=== PATIENT | female | born 1985 ===

== ENCOUNTER 2017-04-10 13:02 | Emergency (ER) | payer SELFPAY ==
[2017-04-10 13:47] LABS: SQUAMOUS EPITHIAL 15 /hpf (0-5); URINE BACTERIA RARE (<OCC); URINE BILIRUBIN NEGATIVE (NEGATIVE); URINE BLOOD NEGATIVE (NEGATIVE); URINE CLARITY Clear (Clear); URINE COLOR Yellow (YELLOW); URINE GLUCOSE (UA) NORMAL (Normal); URINE LEUKOCYTE ESTERASE 1+ Leu/uL (Negative); URINE NITRATE NEGATIVE (NEGATIVE); URINE PROTEIN NEGATIVE (NEGATIVE); URINE UROBILINOGEN NORMAL mg/dL (0.2-1.0)
--- NOTE | 2017-04-10 18:30 | OBHP ---
Datetime: 04/10/2017 15:06 IP Chief Complaint Other: abdominal pain IP Adm Impression Other: ain due to fibroids; no activ elabor IP Admit Plan: Discharge home Admit Comment, IP Provider: CC: Lower abdominal pain R>L HPI: Patient is a 31 year old female presenting at 36 weeks gestation with BIBI by first trimester US, who presents with complaint of lower abdominal pain. Pain is made worse wit h movement and is sharp in nature. Pain is location primarily in the mid-lower abdomen and is s lightly worse on the right side than the left. Patient states that the pain began yesterday (Sunday) and has been getting worse, currently rated at 6/10. Patient denies vaginal bleeding, dysuria, hematu augustin, discharge and membrane rupture. Patient states that she is feeling movement, while being i nterviewed. Patient denies chest pain, palpitations and shortness of breath. 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 Stable, Afebrile 2. CEFM 3. UA ---> +1 LE and urine WBC: 10 4. Discharge with prescription of Macrobid 100mg PO BID for 3 days 5. Labor precautions given 6. Instructed to continue care in [place] as planned by patient 7. Plans discussed with attending Seymour Harris DO, PGY-1 ob attending -sherif castellanos.agree with resident exam, assessment and plan Extremities - PN: Normal Abdomen - PN: Abnormal Back - PN: Not Done Breast - PN: Not Done Lungs - PN: Normal Heart - PN: Normal Thyroid - PN: Normal Neurologic - PN: Normal HEENT - PN: Normal General - PN: Normal FHR - Baseline A Provider: 150 Contraction Comments Provider: occ Comments, ACOG Physical Exam: Gen: NAD Cardio: RRR, normal S1, S2 Pulm: CTA bilaterally Abdomen: Soft, BSX4, Gravid, fibroid palpable on right superior lateral to the umbilicus Ext: No edema, no clubbing and no cyanois SVE: Closed and posterior EFM: -TOCO: NONE -FHR: 150, +Accelerations Gestation - Est Wks by US: 36.0 Pool Provider: Negative NICHD Variability Prov Fetus A: Absent - Undetectable NICHD Accel Fetus A IP Provider: 15X15 FHR Category Provider Fetus A: Category I Dilatation, Provider: 0 Effacement, Provider: 0 Genitourinary Exam: Not Done
[2017-04-10 18:34] VITALS: BP 118/78; PULSE 103
== END 2017-04-10 14:33 | disposition home or self-care (01) ==
LOC: C.EROB 13:02
DX: O26.893 Other specified pregnancy related conditions, third trimester (principal); Z3A.36 36 weeks gestation of pregnancy; R10.30 Lower abdominal pain, unspecified

== ENCOUNTER 2017-05-04 06:45 | Inpatient (IN) | payer SELFPAY ==
[2017-05-04] MEDS ORDERED: Sodium Citrate/Citric Acid 15 ml Sol PO ONE (07:18)
[2017-05-04] MEDS ORDERED: cefOXitin 2 GM in Sodium Chloride 0.9% 100 ML IVPB ONE (07:18)
[2017-05-04 07:27] VITALS: BMI 29.0
[2017-05-04] MEDS ORDERED: Lactated Ringer's 1,000 ML IV SCH ×2 (07:30)
[2017-05-04 09:03] LABS: BASO % 0.3 % (0.0-2.0); EOS # 0.2 K/uL (0.0-0.7); EOS % 2.7 % (0.0-4.0); HEMOGLOBIN 11.7 g/dL (11.0-16.0); LYMPH # 1.5 K/uL (1.0-4.3); LYMPH % 17.5 % (20.0-40.0); MEAN CORPUSCULAR HEMOGLOBIN 29.1 pg (27.0-31.0); MEAN CORPUSCULAR HGB CONC 33.8 g/dL (33.0-37.0); MEAN PLATELET VOLUME 9.7 fL (7.2-11.7); MONO # 0.6 K/uL (0.0-0.8); MONO % 6.9 % (0.0-10.0); NEUT # 6.4 K/uL (1.8-7.0); NEUT % 72.6 % (50.0-75.0); NRBC % 0.1 % (0.0-2.0); RBC 4.03 Mil/uL (3.80-5.20); RED CELL DISTRIBUTION WIDTH 14.7 % (11.5-14.5); WHITE BLOOD COUNT 8.8 K/uL (4.8-10.8)
[2017-05-04 09:08] LABS: ALBUMIN 3.5 g/dL (3.5-5.0); ALT/SGPT 31 U/L (9-52); AST/SGOT 27 U/L (14-36); BLOOD UREA NITROGEN 12 mg/dL (7-17); CALCIUM 9.4 mg/dl (8.6-10.4); GFR AFRICAN-AMERICAN > 60; GFR NON-AFRICAN AMERICAN > 60
[2017-05-04 09:12] LABS: SQUAMOUS EPITHIAL 13 /hpf (0-5); URINE BACTERIA FEW (<OCC); URINE BILIRUBIN NEGATIVE (NEGATIVE); URINE BLOOD NEGATIVE (NEGATIVE); URINE CALCIUM OXALATE CRYSTALS FEW /hpf (<OCC); URINE CLARITY Hazy (Clear); URINE COLOR Yellow (YELLOW); URINE GLUCOSE (UA) NORMAL (Normal); URINE LEUKOCYTE ESTERASE TRACE Leu/uL (Negative); URINE NITRATE NEGATIVE (NEGATIVE); URINE PROTEIN 1+ mg/dL (NEGATIVE); URINE UROBILINOGEN NORMAL mg/dL (0.2-1.0)
--- NOTE | 2017-05-04 09:27 | US ---
Indication: ??fibroids. 39w 6d poor care Comparison: None available Technique: Real-time ultrasound was performed through the pelvis. Findings: There is a single living fetus in cephalic presentation. Amniotic fluid volume measures approximately 12.3 cm, within normal limits. Right lateral placenta. The placenta is not previa. Sub serosal probable uterine fibroid within the mid right uterus measures approximately 8.2 x 7.6 x 7.3 cm. There are no adnexal masses or cysts evident. The cervix is not seen. Measurements and calculations: Fetus has a composite sonographic age of 39 weeks 1 day. This calculation is based on the biparietal diameter, head circumference, abdominal circumference, and femur length. Estimated heart rate 142.5 beats per min. Estimated weight 3687 g. Four-chamber heart was not adequately visualized. The study was performed for emergent evaluation, and the whole anatomic survey of the fetus was not performed. Limited visualized anatomy including spine, stomach, kidneys, cord insertion, and urinary bladder appear grossly unremarkable. Biophysical profile: movements 2/2 breathing 2/2 tone 2/2 Amniotic fluid 2/2 Total score impression: 8/8 Impression: Limited study. Single living fetus with a composite sonographic age of 39 weeks 1 day. Estimated heart rate 142.5 beats per min. Biophysical profile of 8 out of 8. 8.2 cm sub serosal mid right uterine fibroid.
[2017-05-04 14:37] VITALS: BP 124/90; PULSE 89; TEMP 97; O2SAT 99
--- NOTE | 2017-05-04 22:21 | OBDCSUM ---
Datetime: 05/04/2017 10:19 Discharge Instructions, Provider: Specific instructions as noted Follow up in weeks, Provider: Sunday05/07/17 Discharge Diagnosis Prov Other: Term - undelivered Leiomyomatous uteri Anemia GBS positive
== END 2017-05-04 10:35 | disposition home or self-care (01) | DRG 781 ==
LOC: C.4D 06:45
PROVIDERS: ADMIT Obstetrics & Gynecology; ATTEND Obstetrics & Gynecology
DX: O99.013 Anemia complicating pregnancy, third trimester (principal); O34.13 Maternal care for benign tumor of corpus uteri, third trimester; D25.2 Subserosal leiomyoma of uterus; O99.820 Streptococcus B carrier state complicating pregnancy; Z3A.39 39 weeks gestation of pregnancy

== ENCOUNTER 2017-05-07 14:17 | Inpatient (IN) | payer MEDICAID ==
[2017-05-07] MEDS ORDERED: Lactated Ringer's 1,000 ML IV SCH (14:30)
[2017-05-07] MEDS ORDERED: Penicillin G 5 Million Unit Vial IVPB ONE ×2 (14:30→21:38)
[2017-05-07] MEDS ORDERED: PENICILLIN POTASSIUM MU IVPB ONE (15:00)
[2017-05-07] MEDS ORDERED: SODIUM CHLORIDE IVPB ONE (15:00)
[2017-05-07] MEDS ORDERED: Fentanyl/Bupivacaine HCl 250 ML EPI ONE (17:40)
--- NOTE | 2017-05-07 17:49 | OBHP ---
Datetime: 05/07/2017 14:12 IP Adm Impression: Term, intrauterine IP Admit Plan: Admit to unit Admit Comment, IP Provider: 31 year old at 40w2d BIBI 05/05/17 by LMP (07/29/2016) presents to L+D for scheduled induction of labor. Patient is doing well, offers no complaints. Endorses +FM, denies C TX, VB, LOF. Patient was extensively counseled on trial of labor vs C/S for leiomyoma upon arrival an d patient is still ammenable to trial of labor. 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 PE: See above A/P: 31 year old at 40w2 presents for induction of labor, hx of leiomyomatous uterus -Admit to unit for induction of labor -CEFM and TOCO -Category I tracing -Labs: T+S -GBS positive: Pen G 5MU x 1, Pen G 2.5MU q4H until delivery -Anesthesia consulted -Cytotec 50mcg PO for cervical ripening agent -Anticipate vaginal delivery -Plan discussed with Dr. Piyush Chaudhry DO PGY-1 Attending Note: Patient seen and examined by me withthe Resident. Cervical exam performed by me. I agree with the above as documented. In addition, the course of trial of labor was discussed to inc lude the placement of cervical ripening balloon with pitocin after the first dose of cytotec. Patien t to receive epidural prior to this additional step. Patient expressed an understanding. All of her and her huband's concerns and questions were addressed and answered; patient agrees with the plans a s above. Category 1 tracing. Patient is clinically stable. Plan: 1) as above FHR - Baseline A Provider: 140 Membranes, Provider: Intact Contraction Comments Provider: occasional Comments, ACOG Physical Exam: VSS Gen: AAOx3 Abd: Soft, gravid Ext: No clubbing, cyanosis, edema SVE: /-3 TOCO: 140, moderate variability, +accels CTX: occasional US 05/04/16: Right fundolateral subserosal myoma 8.2 x 7.6 x 7.3 cm; fetus is cephalic, EFW 3687 gra ms; LINDA 12.3cm; BPS 8/8. IP Hx Assessment: The History has been Reviewed and is Current EGA AdmitDate IP: 40.2 Vital Signs Provider: Reviewed; Within Normal Limits IP Chief Complaint: Scheduled induction of labor NICHD Variability Prov Fetus A: Moderate 6-25bpm NICHD Accel Fetus A IP Provider: 15X15 FHR Category Provider Fetus A: Category I NICHD Decel Fetus A IP Provider: None Dilatation, Provider: 2 Effacement, Provider: 40 Station, Provider: -3 Datetime: 05/04/2017 19:28 Pelvic Type - PN: Adequate Extremities - PN: Normal Abdomen - PN: Abnormal Back - PN: Normal Breast - PN: Not Done Lungs - PN: Normal Heart - PN: Normal Thyroid - PN: Not Done Neurologic - PN: Normal HEENT - PN: Normal General - PN: Normal Presentation-Admit: Vertex Gestation - Est Wks by US: 39w 6d Genitourinary Exam: Normal DTRs - PN: Not Done
[2017-05-07] MEDS ORDERED: Oxytocin 30 UNIT 30 UNITS/500 ML BAG IV SCH (18:45)
[2017-05-07] MEDS ORDERED: Oxytocin 30 UNIT 30 UNITS/500 ML BAG IV ONE (19:24)
--- NOTE | 2017-05-08 00:52 | OBPN ---
Datetime: 05/08/2017 00:46 IP Progress Impression: Normal progression of labor IP Procedures: Sterile Vag Exam IP Progress Plan: Continue present management; Augmentation; Anticipate Vaginal Delivery Membranes, Provider: Intact Contraction Comments Provider: 1-2 FHR - Baseline A Provider: 145 Gestation - Est Wks by US: 40w 3d Presentation-Admit: Vertex IP Progress Note Comment: Patient resting comfortable Cervical exam as above. Intracervical balloons removed. Pitocin = 12 mUnits Assessment:31 y.o. P0, 40w 3d, leiomyomatous uteri - S/P cytotec p.o. x 1 and intracervical balloo n with pitocin for augmentaiton. Patient with appropriate cervical response - in active labor. GBS (+ ) on penicillin. Category 1 tracing. Clinically stable. Plan: 1) Continue present management 2) Anticipate vaginal delivery Vital Signs Provider: Reviewed; Within Normal Limits FHR Category Provider Fetus A: Category I NICHD Variability Prov Fetus A: Moderate 6-25bpm Dilatation, Provider: 7 Effacement, Provider: 70 Station, Provider: -2 NICHD Decel Fetus A IP Provider: Early Datetime: 05/07/2017 14:12 NICHD Accel Fetus A IP Provider: [id number] Datetime: 04/10/2017 15:06 Pool Provider: Negative
[2017-05-08] MEDS ORDERED: Bupivacaine HCl 0.25% PF (10 ml) Inj ONE ×2 (02:48→05:50)
[2017-05-08] MEDS ORDERED: Lidocaine 2% MPF (5 ml) Inj ONE ×2 (02:49→06:14)
--- NOTE | 2017-05-08 05:55 | OBPN ---
Datetime: 05/08/2017 05:45 IP Progress Impression: Normal progression of labor IP Procedures: Sterile Vag Exam IP Progress Plan: Continue present management; Anesthesia consult; Anticipate Vaginal Delivery Membranes, Provider: Ruptured Contraction Comments Provider: 2 FHR - Baseline A Provider: 130 Gestation - Est Wks by US: 40w 3d Presentation-Admit: Vertex IP Progress Note Comment: Patient with SROM 0330 ohurs. FHR noted for late decels btwn 0330 hours an d 0400 hours - resolved. Pitocin had been discontinued at 0330 hours. Cervical exam as above. - anterior lip; non reducible. Patient c/o pain in low back and hip joint s with each contraction Assessment: 31 y.o. P0, 40w 3d, leiolyomatous uteri, near end of Stage 1 of labor. category 1 trac ing. Clinically stable. Plan 1) Epidural top off 2) Anticipate vaginal delivery Vital Signs Provider: Reviewed; Within Normal Limits NICHD Accel Fetus A IP Provider: 15X15 FHR Category Provider Fetus A: Category I NICHD Variability Prov Fetus A: Moderate 6-25bpm Dilatation, Provider: 10 Effacement, Provider: 100 Station, Provider: 0 NICHD Decel Fetus A IP Provider: Early
[2017-05-08] MEDS ORDERED: Lidocaine 2% Inj (20ml) ONE (07:35)
[2017-05-08] MEDS ORDERED: Benzocaine/Menthol 20%-0.5% Topical Spray (60 ml) TOP PRN (09:41)
--- NOTE | 2017-05-08 10:22 | OBDS ---
DELIVERY PERSONNEL Delivery Doctor: Chelsea Pickett MD [place]ax Room Supervisor: Bk Ledezma RN Anesthesiologist: Chelsea Zamora MD MATERNAL INFORMATION Delivery Anesthesia: Local; Epidural Estimated Blood Loss (ml): 300 Placenta Cultured: No Maternal Complications: None RN Comments: h/o uterine fibroids Provider Comments: Uncomplicated vaginal delivery of live female from COREY position, over righ t median episiotomy. placed on patient's abdomen; umbilical cord doubly clamped and cut. Infan t handed to peds in attendance. Weight 7lb 11oz, 's 9/9. Spontaneous delivery of placenta - grossly intact; 3 vessel cord Uterine exploration performed; along with inspection of cervix, vagina and perineum - no extension s. Repair as above. Hemostasis assured. Patient tolerated procedure well. Infant, mother and father b onding mother and in stable condition. LABOR SUMMARY EDC: 05/05/2017 00:00 No. Babies in Womb: 1 Attempted: No Labor Anesthesia: Epidural LABOR INFORMATION Reason for Induction: Postterm Onset of Labor: 05/07/2017 15:00 Complete Dilatation: 05/08/2017 07:35 Cervical Ripening Agents: Bergman Balloon; Cytotec @ Oxytocin: Augmentation Group B Beta Strep: Positive Antibiotics # of Doses: 3 Antibiotics Time of Last Dose: 5:45am Steroids Given: None Reason Steroids Not Administered: Not Applicable MEMBRANES Membranes Rupture Method: Spontaneous Rupture of Membranes: 05/08/2017 03:30 Length of Rupture (hrs): 5.98 Amniotic Fluid Color: Clear Amniotic Fluid Amount: Moderate Amniotic Fluid Odor: Normal STAGES OF LABOR Stage 1 hrs: 16 Stage 1 min: 35 Stage 2 hrs: 1 Stage 2 min: 54 Stage 3 hrs: 0 Stage 3 min: 6 Total Time in Labor hrs: 18 Total Time in Labor min: 35 VAGINAL DELIVERY Episiotomy: Median Laceration Extension: N/A Laceration Repair: Not Applicable Laceration Repair Note: 2-0 and 3-0 chromic in routine fashion. Hemostasis assured. Patient tolerate d procedure well. Initial Vag Sponge Count: 20 Final Vag Sponge Count: 20 Initial Vag Sharps Count: 1 Final Vag Sharps Count: 1 Sponge Count Correct: Yes Sharps Count Correct: Yes Count Comment: Correct BABY A INFORMATION Delivery Date/Time: 05/08/2017 09:29 Method of Delivery: Vaginal Born in Route : No : N/A Forceps: N/A Vacuum Extraction: N/A Shoulder Dystocia : No SHOULDER DYSTOCIA BABY A Delivery Date/Time: 05/08/2017 09:29 PRESENTATION/POSITION BABY A Presentation: Cephalic Cephalic Presentation: Vertex Vertex Position: Right Occipital Anterior Breech Presentation: N/A PLACENTA INFORMATION BABY A Placenta Delivery Time : 05/08/2017 09:35 Placenta Method of Delivery: Spontaneous Placenta Status: Delivered SCORES BABY A Heart Rate 1 min: >100 bpm Resp Effort 1 min: Good Cry Reflex Irritability 1 min: Cough or Sneeze or Pulls Away Muscle Tone 1 min: Active Motion Color 1 min: Body [place], Extremities Blue Resuscitation Effort 1 min: Tactile Stimulation SCORE 1 MIN: 9 Heart Rate 5 min: >100 bpm Resp Effort 5 min: Good Cry Reflex Irritability 5 min: Cough or Sneeze or Pulls Away Muscle Tone 5 min: Active Motion Color 5 min: Body [place], Extremities Blue Resuscitation Effort 5 min: N/A SCORE 5 MIN: 9 INFORMATION BABY A Gestational Age at Delivery: 40.3 Gestational Status: Term Infant Outcome : Liveborn Infant Condition : Stable Sex: Female IDENTIFICATION/MEDS BABY A ID Band Number: [id number] ID Band Location: Left Leg; Left Arm Sensor Number: [id number] Sensor Location : Right Leg Vitamin K Given : Aquamephyton 1 mg IM; Left Thigh Erythromycin Given: Given Both Eyes WEIGHT/LENGTH BABY A Birthweight (gms): 3475 Weight (lb): 7 Weight (oz): 11 Length Inches: 20.50 Length cms: 52.1 CORD INFORMATION BABY A No. Cord Vessels: 3 Nuchal Cord : N/A Cord Blood Taken: Yes Suction: Mouth; Nose
[2017-05-08] MEDS: Oxycodone/Acetaminophen 5/325 mg Tab PO PRN ×2 (12:21→18:07)
[2017-05-09] MEDS: Oxycodone/Acetaminophen 5/325 mg Tab PO PRN ×3 (01:42→17:05)
[2017-05-09 07:17] LABS: BASO % 0.2 % (0.0-2.0); EOS # 0.3 K/uL (0.0-0.7); HEMOGLOBIN 9.3 g/dL (11.0-16.0); LYMPH # 2.1 K/uL (1.0-4.3); LYMPH % 15.5 % (20.0-40.0); MEAN CELL VOLUME 85.8 fL (81.0-99.0); MEAN CORPUSCULAR HEMOGLOBIN 29.1 pg (27.0-31.0); MEAN CORPUSCULAR HGB CONC 33.9 g/dL (33.0-37.0); MEAN PLATELET VOLUME 9.2 fL (7.2-11.7); MONO # 0.9 K/uL (0.0-0.8); MONO % 6.7 % (0.0-10.0); NEUT # 10.4 K/uL (1.8-7.0); NEUT % 75.6 % (50.0-75.0); RBC 3.19 Mil/uL (3.80-5.20); RED CELL DISTRIBUTION WIDTH 14.5 % (11.5-14.5); WHITE BLOOD COUNT 13.8 K/uL (4.8-10.8)
--- NOTE | 2017-05-09 07:30 | OBPPN ---
Datetime: 05/09/2017 07:28 PP Pain Prov: Within normal limits PP Nausea Prov: Denies PP Flatus Prov: Yes PP Abdomen/Uterus Prov: Normal PP Lochia Prov: Normal PP Extremities Prov: Normal PP Comments Phys Exam Prov: fudus below umblicusd ext no edema,no cak PP Impression Prov: Normal progression PP Plan Prov: Continue present management PP Progress Note Prov: pt was seen at bed side, pain under control,no n/v, tolerating deit,voiding,m in lochia, flatus+ ppd#1 s/p cbc rreg deit cont pp care Vital Signs Provider PP: Reviewed; Within Normal Limits
[2017-05-10] MEDS: Oxycodone/Acetaminophen 5/325 mg Tab PO PRN (09:25)
[2017-05-10 22:10] VITALS: BP 116/80; PULSE 83; RESP 20; TEMP 98.3; O2SAT 98
--- NOTE | 2017-05-11 08:26 | OBPPN ---
Datetime: 05/10/2017 08:40 PP Pain Prov: Within normal limits PP Nausea Prov: Denies PP Flatus Prov: Yes PP BM Prov: No PP Impression Prov: Normal progression PP Plan Prov: Continue present management; Discharge PP Progress Note Prov: Patient seen and examined at bedside. Patient is doing well, offers no compla ints at this time. Pain is controlled. Lochia is moderate. Patient is ambulating and tolerating diet. Urinating without difficulty. Passing flatus, no BM. Breast feeding. Denies headaches, dizziness, cp , palpitations, sob, urinary symptoms. VS: BP: 110/72 HR: 84 Temp: 98.1 Gen: AAOx3 Abd: Soft, fundus firm 1 fingerbreath below umbilicus Ext: No clubbing, cyanosis, edema; no calf tenderness Labs: 8.8>11.7/34.7<236 13.8>9.3/27.4<183 A positive Rubella immune A/P: 31 year old at 40w3d s/p PPD#2 -Stable, afebrile -Pain control prn -Continue ambulation and hydration -Continue -Continue routine care -D/C home today: pelvic rest x 6 weeks, f/u with clinic in 6 weeks Vilma Chaudhry DO PGY-1 Attending Note: patient is seen and evaluated by me with the Resident. I agree with the above. Patient considering condoms for contraception. Vital Signs Provider PP: Reviewed; Within Normal Limits
--- NOTE | 2017-05-11 08:29 | OBDCSUM ---
Datetime: 05/10/2017 16:38 Disch Instr Activity: Normal activity; May be up to bathroom; May be up for meals; May Shower Discharge Instructions, Provider: Specific instructions as noted Discharge Diagnosis, Provider: Postterm Delivery Contraception discussed, Prov: Yes Disch Activity Restrictions: No exercising; No lifting; No sexual activity; Nothing in vagina - Inte rcourse, tampons, douche Discharge Diagnosis Prov Other: Leiomyomatous uteri Acute blood loss anemia Contraception counseling Contraception after Delivery: Foam/Condoms
== END 2017-05-10 17:47 | disposition home or self-care (01) | DRG 775 ==
LOC: C.EROB 14:17 → C.4D 14:31 → C.4M 05-08 11:55
PROVIDERS: ADMIT Obstetrics & Gynecology; ATTEND Obstetrics & Gynecology
PROC: 3E0P7VZ Introduction of Hormone into Female Reproductive, Via Natural or Artificial Opening (ICD-10-PCS; 2017-05-07)
PROC: 10E0XZZ Delivery of Products of Conception, External Approach (ICD-10-PCS; principal; 2017-05-08)
PROC: 0W8NXZZ Division of Female Perineum, External Approach (ICD-10-PCS; 2017-05-08)
DX: O48.0 Post-term pregnancy (principal); O76 Abnormality in fetal heart rate and rhythm complicating labor and delivery; O34.13 Maternal care for benign tumor of corpus uteri, third trimester; D25.2 Subserosal leiomyoma of uterus; O99.02 Anemia complicating childbirth; D62 Acute posthemorrhagic anemia; O99.824 Streptococcus B carrier state complicating childbirth; Z3A.40 40 weeks gestation of pregnancy; Z37.0 Single live birth